=== PATIENT | male | born 1985 | race Caucasian/White ===

== ENCOUNTER 2023-07-05 18:56 | Emergency (ER) | payer OTHER ==
[~2023-07-05] VITALS: Ht 172.7 cm; Wt 71.2 kg
[2023-07-05] MEDS ORDERED: FENTANYL CITRATE 100 MCG/2 ML AMPUL ONE (19:38)
[2023-07-05] MEDS ORDERED: FENTANYL CITRATE 100 MCG/2 ML AMPUL IV ONE (19:45)
[2023-07-05] MEDS ORDERED: KETAMINE HCL 200 MG/20 ML VIAL ONE (20:10)
[2023-07-05] MEDS: KETAMINE HCL 500 MG/10 ML INJ IV ONE (20:14)
[2023-07-05] MEDS ORDERED: PROPOFOL 200 MG/20 ML BOTTLE ONE (21:06)
[2023-07-05] MEDS ORDERED: KETOROLAC TROMETHAMINE 30 MG INJ IVP ONE (22:00)
[2023-07-05] MEDS ORDERED: PROPOFOL 200 MG/20 ML BOTTLE IV ONE (22:15)
[2023-07-05] MEDS ORDERED: HYDR-4209 PO (22:22)
[2023-07-05 22:45] VITALS: BP 129/75; TEMP 98; O2SAT 99
== END 2023-07-05 22:46 | disposition home or self-care (01) ==
LOC: ER 21:23
DX: S43.005A Unspecified dislocation of left shoulder joint, initial encounter (principal); X50.1XXA Overexertion from prolonged static or awkward postures, initial encounter; Y93.89 Activity, other specified; Y92.89 Other specified places as the place of occurrence of the external cause; Y99.8 Other external cause status
CPT/HCPCS: 99285; 23650; 73030 ×2; 99152; J3010; J7040; A4663; G0500; J3490